=== PATIENT | male | born 1985 | race American Indian/Alaskan Native ===

== ENCOUNTER 2021-04-25 22:42 | Emergency (ER) | payer SELFPAY ==
[2021-04-26 00:37] VITALS: BP 142/70
--- NOTE | 2021-04-26 01:29 | Emergency Department Report ---
[facility] Chief Complaint: Eye Problems Stated Complaint: BOTH EYES YELLOW PUS/PAINFUL Time Seen by Provider: 04/26/21 00:49 Duration: 2 Days Side: Right Severity: mild, moderate Symptoms: Yes Eye Itching, Yes Eye Redness, Yes Eye Pain, Yes Mucous Drainage, No Blurred Vision, No Preceding URI, No Contact Lens Use, No Trauma, No Fever, No Headache Other History: 35-year-old female with my department complaining of poorly itchy at which is progressed to a timmy gritty sensation with mucus buildup similar to her previous pinkeye episodes ED Review of Systems ROS: Stated complaint: BOTH EYES YELLOW PUS/PAINFUL Other details as noted in HPI Comment: All other systems reviewed and negative ED Past Medical Hx - Past Medical History Previous Medical History?: No - Surgical History Past Surgical History?: No - Medications Home Medications: Home Medications Medication Instructions Recorded Confirmed Last Taken Type Naphazoline HCl/Pheniramine 1 drop OU BID #1 bottle 04/26/21 Unknown Rx [Naphcon-A Eye Drops] Tobramycin [Tobrex] 1 drop OP Q4H #1 bottle 04/26/21 Unknown Rx [facility] Exam - Exam General: Vital signs noted. No distress. Alert and acting appropriately. Eye Exam: Right Injection, Neither Chemosis, Neither Abnormal Pupil, Neither EOMI, Neither Eye Foreign Body, Neither Lid Foreign Body, Neither Mucous Discharge, Neither Purulent Discharge, Neither Fluorescein Uptake, Neither Fluorescein Uptake (slit lamp), Neither Cell/Flare (slit lamp), Neither Corneal Edema, Neither Photophobia HEENT: No Nasal Congestion, No Pharyngeal Erythema Remainder of HEENT: Normal Lungs: Yes Clear Lung Sounds, Yes Good Air Exchange, No Wheezes, No Stridor, No Nasal Flaring ED Course Vital Signs 04/26/21 00:34 Temperature 97.7 F Pulse Rate 93 H Respiratory 16 Rate Blood Pressure 142/70 [Right] O2 Sat by Pulse 99 Oximetry Critical care attestation.: If time is entered above; I have spent that time in minutes in the direct care of this critically ill patient, excluding procedure time. ED Disposition Clinical Impression: Conjunctivitis Disposition: 01 HOME / SELF CARE / HOMELESS Is pt being admited?: No Does the pt Need Aspirin: No Condition: Stable Instructions: How to Use Eye Drops and Eye Ointments Prescriptions: Naphazoline HCl/Pheniramine [Naphcon-A Eye Drops] 1 drop OU BID #1 bottle Tobramycin [Tobrex] 1 drop OP Q4H #1 bottle Referrals: [facility] [Provider Group] - 3-5 Days
== END 2021-04-26 02:15 | disposition home or self-care (01) ==
LOC: ED 22:42
DX: H10.9 Unspecified conjunctivitis (principal); Z88.6 Allergy status to analgesic agent
CPT/HCPCS: 99282

== ENCOUNTER 2021-07-13 16:07 | Emergency (ER) | payer SELFPAY ==
[2021-07-13] MEDS ORDERED: ALBUTEROL 8.5 GM MDI INHALATION IH ONE (16:27)
[2021-07-13] MEDS ORDERED: DEXAMETHASONE 4 MG TAB PO ONE (16:27)
--- NOTE | 2021-07-13 16:47 | XRay Report ---
XR chest routine 2V INDICATION / CLINICAL INFORMATION: cough, covid exposure. COMPARISON: None available. FINDINGS: SUPPORT DEVICES: None. HEART /PULMONARY VASCULATURE: No significant abnormality. LUNGS / PLEURA: No significant pulmonary or pleural abnormality. No pneumothorax. ADDITIONAL FINDINGS: No significant additional findings. IMPRESSION: 1. No acute findings. Signer Name: Trino Lakhani MD Signed: 07/13/2021 4:42 PM Workstation Name: [id number]
--- NOTE | 2021-07-13 16:49 | Emergency Department Report ---
- General Chief Complaint: Upper Respiratory Infection Stated Complaint: COUGH/BODYACHES/VOMITING Time Seen by Provider: 07/13/21 16:20 Source: patient Mode of arrival: Ambulatory Limitations: No Limitations - History of Present Illness Initial Comments: Patient is a 35-year-old F [place] female who is presenting with cough cold congestion for the last 3 days. Patient states that her job approximately 14 people have tested positive for COVID-19. Patient started having cough congestion body aches and subjective fevers approximately 3 days ago. T-max of 101.2 today. She also has had some mild nausea and some diarrhea. Patient states she has a history of asthma and has noticed some wheezing. She is new in town and does not have primary care and no longer has her Flovent or albuterol inhalers. - Related Data Previous Rx's Medication Instructions Recorded Last Taken Type Naphazoline HCl/Pheniramine 1 drop OU BID #1 bottle 04/26/21 Unknown Rx [Naphcon-A Eye Drops] Tobramycin [Tobrex] 1 drop OP Q4H #1 bottle 04/26/21 Unknown Rx Albuterol Mdi (or & Nicu Only) 2 puff IH QID PRN #1 inhalation 07/13/21 Unknown Rx [ProAir HFA Inhaler] Azithromycin [Zithromax Z-MICHELL] 250 mg PO DAILY #6 tablet 07/13/21 Unknown Rx Dexamethasone [Decadron] 6 mg PO DAILY #5 tablet 07/13/21 Unknown Rx Dicyclomine [Bentyl] 20 mg PO QID #10 tablet 07/13/21 Unknown Rx Fluticasone (Nf) [Flovent Hfa(Nf)] 2 puff IH BID #1 puff 07/13/21 Unknown Rx Ondansetron [Zofran Odt] 4 mg PO Q8HR #10 tab.rapdis 07/13/21 Unknown Rx guaiFENesin/CODEINE [Robitussin AC] 5 ml PO Q6HR PRN #100 oral.liqd 07/13/21 Unknown Rx Allergies Allergy/AdvReac Type Severity Reaction Status Date / Time acetaminophen [From Tylenol] Allergy Hives Verified 04/26/21 00:37 ED Review of Systems ROS: Stated complaint: COUGH/BODYACHES/VOMITING Other details as noted in HPI Comment: All other systems reviewed and negative ED Past Medical Hx - Past Medical History Hx Asthma: Yes - Medications Home Medications: Home Medications Medication Instructions Recorded Confirmed Last Taken Type Naphazoline HCl/Pheniramine 1 drop OU BID #1 bottle 04/26/21 Unknown Rx [Naphcon-A Eye Drops] Tobramycin [Tobrex] 1 drop OP Q4H #1 bottle 04/26/21 Unknown Rx Albuterol Mdi (or & Nicu Only) 2 puff IH QID PRN #1 inhalation 07/13/21 Unknown Rx [ProAir HFA Inhaler] Azithromycin [Zithromax Z-MICHELL] 250 mg PO DAILY #6 tablet 07/13/21 Unknown Rx Dexamethasone [Decadron] 6 mg PO DAILY #5 tablet 07/13/21 Unknown Rx Dicyclomine [Bentyl] 20 mg PO QID #10 tablet 07/13/21 Unknown Rx Fluticasone (Nf) [Flovent Hfa(Nf)] 2 puff IH BID #1 puff 07/13/21 Unknown Rx Ondansetron [Zofran Odt] 4 mg PO Q8HR #10 tab.rapdis 07/13/21 Unknown Rx guaiFENesin/CODEINE [Robitussin AC] 5 ml PO Q6HR PRN #100 oral.liqd 07/13/21 Unknown Rx ED Physical Exam - General Limitations: No Limitations General appearance: alert, in no apparent distress - Head Head exam: Present: atraumatic, normocephalic - Eye Eye exam: Present: normal appearance - ENT ENT exam: Present: mucous membranes moist - Neck Neck exam: Present: normal inspection - Respiratory Respiratory exam: Present: normal lung sounds bilaterally, rhonchi. Absent: respiratory distress, wheezes, rales - Cardiovascular Cardiovascular Exam: Present: regular rate, normal rhythm. Absent: systolic murmur, diastolic murmur, rubs, gallop - GI/Abdominal GI/Abdominal exam: Present: soft, normal bowel sounds. Absent: distended, tenderness, guarding, rebound - Rectal Rectal exam: Present: deferred - Extremities Exam Extremities exam: Present: normal inspection - Back Exam Back exam: Present: normal inspection - Neurological Exam Neurological exam: Present: alert, oriented X3 - Psychiatric Psychiatric exam: Present: normal affect, normal mood - Skin Skin exam: Present: warm, dry, intact, normal color. Absent: rash ED Course Vital Signs 07/13/21 16:15 Temperature 99.9 F H Pulse Rate 84 Respiratory 16 Rate Blood Pressure 154/85 O2 Sat by Pulse 97 Oximetry ED Medical Decision Making - Radiology Data Chest x-ray shows no acute process or infiltrate - Medical Decision Making Given the prevalence of the omicron varient this is the most likely diagnosis. Pt with no hypoxia. Given meds for symptomatic relief. Critical care attestation.: If time is entered above; I have spent that time in minutes in the direct care of this critically ill patient, excluding procedure time. ED Disposition Clinical Impression: Acute bronchitis due to 2019 novel coronavirus Disposition: 01 HOME / SELF CARE / HOMELESS Is pt being admited?: No Does the pt Need Aspirin: No Condition: Stable Instructions: Acute Bronchitis (ED), Acute Bronchitis, Adult, [id number], COVID-19 Frequently Asked Questions Forms: Work/School Release Form(ED) Time of Disposition: 16:49
[2021-07-13 17:29] VITALS: BP 130/96
== END 2021-07-13 17:29 | disposition home or self-care (01) ==
LOC: ED 16:07
DX: U07.1 COVID-19 (principal); J20.8 Acute bronchitis due to other specified organisms; J45.909 Unspecified asthma, uncomplicated; Z79.899 Other long term (current) drug therapy; Z88.6 Allergy status to analgesic agent
CPT/HCPCS: 71046; 94640; 99283; J8540